=== PATIENT | male | born 1990 | race Caucasian/White ===

== ENCOUNTER 2019-11-06 15:57 | Emergency (ER) | payer OTHER ==
[~2019-11-06] VITALS: Ht 170.2 cm; Wt 83.9 kg
[2019-11-06] MEDS ORDERED: DICLOFENAC SODI75 MG PO (19:33)
[2019-11-06] MEDS ORDERED: PERCOCET 5-3251 EACH PO (19:33)
== END 2019-11-06 19:50 | disposition home or self-care (01) ==
LOC: EMR PED 15:57 → ER 15:57
DX: S82.142A Displaced bicondylar fracture of left tibia, initial encounter for closed fracture (principal); M12.862 Other specific arthropathies, not elsewhere classified, left knee; X50.9XXA Other and unspecified overexertion or strenuous movements or postures, initial encounter; Y93.61 Activity, american tackle football; Y92.89 Other specified places as the place of occurrence of the external cause; Y99.8 Other external cause status